=== PATIENT | female | born 1935 | race Caucasian/White ===

== ENCOUNTER → 2017-02-28 | Outpatient (CLI) | payer MEDICARE | END | disposition home or self-care (01) | LOC: GMAL 14:34 | PROVIDERS: ATTEND Family Medicine | DX: N30.00 Acute cystitis without hematuria (principal); R53.83 Other fatigue ==

== ENCOUNTER → 2017-03-07 | Outpatient (CLI) | payer MEDICARE | END | disposition home or self-care (01) | LOC: GMAL 10:45 | PROVIDERS: ATTEND Family Medicine | DX: N30.00 Acute cystitis without hematuria (principal) ==

== ENCOUNTER → 2017-05-21 | Outpatient (CLI) | payer MEDICARE | LOC: SL 20:30 | PROVIDERS: ATTEND Internal Medicine | DX: G47.33 Obstructive sleep apnea (adult) (pediatric) (principal) ==

== ENCOUNTER → 2017-08-28 | Outpatient (CLI) | payer MEDICARE, OTHER | END | disposition home or self-care (01) | LOC: GMAL 14:31 | PROVIDERS: ATTEND Family Medicine | DX: N30.00 Acute cystitis without hematuria (principal) ==

== ENCOUNTER 2017-10-01 22:06 | Emergency (ER) | payer OTHER ==
[2017-10-01 22:30] VITALS: TEMP 98.1
--- NOTE | 2017-10-01 22:37 | ED.PDOC ---
History of Present Illness - General Chief Complaint: GI Problem Stated Complaint: bleeding tongue Time Seen by Provider: 10/01/17 22:32 Source: patient, family - History of Present Illness Timing/Duration: 1 hour Severity: moderate Improving Factors: rest Worsening Factors: nothing Associated Symptoms: denies symptoms Allergies/Adverse Reactions: Allergies Codeine Allergy (Unknown, Verified 06/07/14 16:25) Fentanyl Allergy (Verified 06/07/14 16:25) Home Medications: Ambulatory Orders Warfarin Sodium 1.25 mg PO SUMOWETHFRSA 06/07/14 Pravastatin Sodium 40 mg PO BEDTIME 07/02/16 Warfarin Sodium 2.5 mg PO TU 07/03/16 Amiodarone HCl [Cordarone] 200 mg PO DAILY #14 tab 07/06/16 Losartan Potassium [Cozaar] 25 mg PO BEDTIME #14 tab 07/06/16 Furosemide [Lasix] 40 mg PO DAILY 10/01/17 Metoprolol Succinate [Metoprolol Succinate ER] 100 mg PO DAILY 10/01/17 Potassium Chloride [Potassium Chloride ER] 10 meq PO DAILY 10/01/17 Review of Systems - Review of Systems EENTM: States: see HPI. Denies: nose congestion, throat pain, mouth pain, mouth swelling Respiratory: States: no symptoms reported Cardiology: States: no symptoms reported Gastrointestinal/Abdominal: Denies: nausea, vomiting Skin: States: no symptoms reported Past Medical History (General) - Patient Medical History Hx Seizures: No Hx Stroke: No Hx Dementia: No Hx Asthma: No Hx of COPD: Yes - restrictive lung disease Hx Cardiac Disorders: Yes Hx Congestive Heart Failure: Yes Hx Pacemaker: Yes Hx Hypertension: Yes Hx Thyroid Disease: No Hx Diabetes: No Hx Gastroesophageal Reflux: Yes Hx Renal Disease: No Hx Cancer: No Hx of HIV: No Hx Hepatitis C: No Hx MRSA: No Surgical History: other - Vaccination History Hx Tetanus, Diphtheria Vaccination: No Hx Influenza Vaccination: Yes Hx Pneumococcal Vaccination: Yes - Social History Hx Tobacco Use: No Hx Chewing Tobacco Use: No Hx Alcohol Use: No Hx Substance Use: No Hx Substance Use Treatment: No Hx Depression: No Hx Physical Abuse: No Hx Emotional Abuse: No Hx Suspected Abuse: No - Female History Patient : No Family Medical History - Family History Mother Living Status: Hx Family Stroke: Yes Hx Family;Other: dementia Father Living Status: Hx Family Cancer: Yes - lung Physical Exam - Physical Exam General Appearance: Alert, Anxious Ears, Nose, Throat: other - 0.5 cm laceration to tongue dorsum near midline, 3- 4 cm from tip Neck: non-tender Respiratory: no respiratory distress Departure - Departure Clinical Impression: Laceration of tongue Disposition: Discharge to Home or Self Care Condition: Fair Departure Forms: ED Discharge - Pt. Copy, Patient Portal Self Enrollment Referrals: Santiago Tim III, MD [Primary Care Provider] - 1-2 Weeks Home Medications: Ambulatory Orders Warfarin Sodium 1.25 mg PO SUMOWETHFRSA 06/07/14 Pravastatin Sodium 40 mg PO BEDTIME 07/02/16 Warfarin Sodium 2.5 mg PO TU 07/03/16 Amiodarone HCl [Cordarone] 200 mg PO DAILY #14 tab 07/06/16 Losartan Potassium [Cozaar] 25 mg PO BEDTIME #14 tab 07/06/16 Furosemide [Lasix] 40 mg PO DAILY 10/01/17 Metoprolol Succinate [Metoprolol Succinate ER] 100 mg PO DAILY 10/01/17 Potassium Chloride [Potassium Chloride ER] 10 meq PO DAILY 10/01/17
[2017-10-01 23:33] VITALS: BP 132/64; O2SAT 96
== END 2017-10-01 23:51 | disposition home or self-care (01) ==
LOC: ER 22:06
DX: S01.512A Laceration without foreign body of oral cavity, initial encounter (principal); J44.9 Chronic obstructive pulmonary disease, unspecified; I11.0 Hypertensive heart disease with heart failure; I50.9 Heart failure, unspecified; K21.9 Gastro-esophageal reflux disease without esophagitis; Z79.01 Long term (current) use of anticoagulants; X58.XXXA Exposure to other specified factors, initial encounter; Y92.9 Unspecified place or not applicable

== ENCOUNTER 2017-10-02 12:34 | Emergency (ER) | payer OTHER ==
[2017-10-02 12:54] VITALS: TEMP 99.1
--- NOTE | 2017-10-02 13:27 | ED.PDOC ---
History of Present Illness - General Chief Complaint: Dental/Mouth Time Seen by Provider: 10/02/17 12:38 Source: patient Exam Limitations: no limitations - History of Present Illness Initial Comments: The patient is an 82-year-old female presenting to emergency room secondary to bleeding from a small laceration in her mid tongue. She does not remember injuring it. She was seen here last night and silver nitrate was applied. She started eating breakfast this morning and it started bleeding again. It bled for approximately one hour and she showed back up here. It actually stopped bleeding approximately 20 minutes prior to her arrival here. It is hemostatic now. She does take Coumadin. Timing/Duration: 1-3 hours Severity: mild Improving Factors: nothing Worsening Factors: nothing Associated Symptoms: denies symptoms Allergies/Adverse Reactions: Allergies Codeine Allergy (Unknown, Verified 10/02/17 12:57) Rash Fentanyl Allergy (Verified 10/02/17 12:57) Home Medications: Ambulatory Orders Warfarin Sodium 1.25 mg PO SUMOWETHFRSA 06/07/14 Pravastatin Sodium 40 mg PO BEDTIME 07/02/16 Warfarin Sodium 2.5 mg PO TU 07/03/16 Amiodarone HCl [Cordarone] 200 mg PO DAILY #14 tab 07/06/16 Losartan Potassium [Cozaar] 25 mg PO BEDTIME #14 tab 07/06/16 Furosemide [Lasix] 40 mg PO DAILY 10/01/17 Metoprolol Succinate [Metoprolol Succinate ER] 100 mg PO DAILY 10/01/17 Potassium Chloride [Potassium Chloride ER] 10 meq PO DAILY 10/01/17 Review of Systems - Review of Systems Constitutional: States: no symptoms reported EENTM: States: see HPI Respiratory: States: no symptoms reported Cardiology: States: no symptoms reported Gastrointestinal/Abdominal: States: no symptoms reported Genitourinary: States: no symptoms reported Musculoskeletal: States: no symptoms reported Skin: States: no symptoms reported Neurological: States: no symptoms reported Endocrine: States: no symptoms reported All other Systems: No Change from Baseline Past Medical History (General) - Patient Medical History Hx Seizures: No Hx Stroke: No Hx Dementia: No Hx Asthma: No Hx of COPD: Yes - restrictive lung disease Hx Cardiac Disorders: Yes Hx Congestive Heart Failure: Yes Hx Pacemaker: Yes Hx Hypertension: Yes Hx Thyroid Disease: No Hx Diabetes: No Hx Gastroesophageal Reflux: Yes - Hiatal hernia Hx Renal Disease: No Hx Cancer: No Hx of HIV: No Hx Hepatitis C: No Hx MRSA: No Surgical History: pacemaker, other - Vaccination History Hx Tetanus, Diphtheria Vaccination: No Hx Influenza Vaccination: Yes - 2017 Hx Pneumococcal Vaccination: Yes - Social History Hx Tobacco Use: No Hx Chewing Tobacco Use: No Hx Alcohol Use: No Hx Substance Use: No Hx Substance Use Treatment: No Hx Depression: No Hx Physical Abuse: No Hx Emotional Abuse: No Hx Suspected Abuse: No - Female History Patient : No Family Medical History - Family History Mother Living Status: Hx Family Stroke: Yes Hx Family;Other: dementia Father Living Status: Hx Family Cancer: Yes - lung Physical Exam - Physical Exam General Appearance: Alert, Comfortable, No apparent distress Eye Exam: bilateral normal Ears, Nose, Throat: hearing grossly normal, other - small 7 mm semicircular laceration to the central tongue that is hemostatic. There is some surrounding scar from the silver nitrate last night. 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 By the time she arrived to the emergency room here it was hemostatic. It has remained hemostatic since her arrival. If it recurs the patient can use a cold compress with some pressure to help stop the bleeding. She has already been instructed by her primary care doctor to hold her Coumadin at least until the weekend. ER warnings were given for any significant worsening. No further intervention has been required here. She has been monitored for more than an hour. She needs to maintain a liquid diet for 2 days. Departure - Departure Clinical Impression: Laceration of tongue Qualifiers: Encounter type: subsequent encounter Qualified Code(s): S01.512D - Laceration without foreign body of oral cavity, subsequent encounter Disposition: Discharge to Home or Self Care Departure Forms: ED Discharge - Pt. Copy, Patient Portal Self Enrollment Diet: full liquid diet Activity: increase activity as tolerated Referrals: Santiago Tim III, MD [Primary Care Provider] - 1-2 Weeks Home Medications: Ambulatory Orders Warfarin Sodium 1.25 mg PO SUMOWETHFRSA 06/07/14 Pravastatin Sodium 40 mg PO BEDTIME 07/02/16 Warfarin Sodium 2.5 mg PO TU 07/03/16 Amiodarone HCl [Cordarone] 200 mg PO DAILY #14 tab 07/06/16 Losartan Potassium [Cozaar] 25 mg PO BEDTIME #14 tab 07/06/16 Furosemide [Lasix] 40 mg PO DAILY 10/01/17 Metoprolol Succinate [Metoprolol Succinate ER] 100 mg PO DAILY 10/01/17 Potassium Chloride [Potassium Chloride ER] 10 meq PO DAILY 10/01/17 Additional Instructions: the patient is an 82-year-old female presenting to the emergency room secondary to her recurrence of bleeding from a laceration on her tongue. By the time she arrived to the emergency room here it was hemostatic. It has remained hemostatic since her arrival. If it recurs the patient can use a cold compress with some pressure to help stop the bleeding. She has already been instructed by her primary care doctor to hold her Coumadin at least until the weekend. ER warnings were given for any significant worsening. No further intervention has been required here. She has been monitored for more than an hour. She needs to maintain a liquid diet for 2 days.
[2017-10-02 13:37] VITALS: BP 136/76; O2SAT 96
== END 2017-10-02 13:38 | disposition home or self-care (01) ==
LOC: ER 12:34
DX: S01.512D Laceration without foreign body of oral cavity, subsequent encounter (principal); Z79.01 Long term (current) use of anticoagulants; J44.9 Chronic obstructive pulmonary disease, unspecified; I11.0 Hypertensive heart disease with heart failure; I50.9 Heart failure, unspecified; K21.9 Gastro-esophageal reflux disease without esophagitis; K44.9 Diaphragmatic hernia without obstruction or gangrene; Z95.0 Presence of cardiac pacemaker; X58.XXXD Exposure to other specified factors, subsequent encounter

== ENCOUNTER → 2017-12-10 | Outpatient (CLI) | payer OTHER | LOC: GMAL 14:33 | PROVIDERS: ATTEND Family Medicine | DX: D51.3 Other dietary vitamin B12 deficiency anemia (principal); E55.9 Vitamin D deficiency, unspecified; N30.00 Acute cystitis without hematuria; I48.2 Chronic atrial fibrillation; I10 Essential (primary) hypertension ==

== ENCOUNTER → 2018-05-27 | Outpatient (CLI) | payer MEDICARE, OTHER | LOC: GMAL 14:38 | PROVIDERS: ATTEND Family Medicine | DX: I50.9 Heart failure, unspecified (principal); D51.3 Other dietary vitamin B12 deficiency anemia; E55.9 Vitamin D deficiency, unspecified; I48.2 Chronic atrial fibrillation; R53.83 Other fatigue; Z79.899 Other long term (current) drug therapy ==

== ENCOUNTER → 2018-10-07 | Outpatient (CLI) | payer OTHER | LOC: GMAL 14:32 | PROVIDERS: ATTEND Family Medicine | DX: D50.8 Other iron deficiency anemias (principal); E55.9 Vitamin D deficiency, unspecified ==

== ENCOUNTER → 2018-10-08 | Outpatient (CLI) | payer OTHER ==
--- NOTE | 2018-10-08 11:18 | US ---
EXAM DESCRIPTION: Liver CLINICAL HISTORY: ABN LIVER FUNCTION COMPARISON: None Available. TECHNIQUE: Right upper quadrant ultrasound FINDINGS: Pancreas: Visualized portions of the pancreas are unremarkable. Bowel gas obscures some areas. Aorta/inferior vena cava: No aortic aneurysm. Normal inferior vena cava. Liver: The liver is homogeneous in texture with normal echogenicity of the hepatic parenchyma. No focal liver lesion or intrahepatic bile duct dilatation. No liver surface irregularity. Normal appearance of the portal vein and hepatic veins. Gallbladder: Gallbladder appears normal in size with no intraluminal stones. Echogenic foci within the wall may be cholesterol deposits or tiny polyps. Common bile duct: Normal caliber measuring 3.2 mm. Right kidney: Renal length is 7.3 cm. This is small for an adult suggesting global atrophy/scarring. Increased cortical echogenicity with overall decreased cortical thickness. No hydronephrosis is seen. No renal mass or shadowing calculus. IMPRESSION: No acute upper abdominal process. Electronically signed by: Bobby Pinzon MD 10/08/2018 11:17 AM [facility]
== END ==
LOC: US 10:06
PROVIDERS: ATTEND Family Medicine
DX: R94.5 Abnormal results of liver function studies (principal)

== ENCOUNTER → 2018-10-15 | Outpatient (CLI) | payer OTHER | LOC: LAB.O 16:36 | PROVIDERS: ATTEND Family Medicine | DX: R74.0 Nonspecific elevation of levels of transaminase and lactic acid dehydrogenase [LDH] (principal); R94.5 Abnormal results of liver function studies; E55.9 Vitamin D deficiency, unspecified; E11.9 Type 2 diabetes mellitus without complications; R30.0 Dysuria ==